=== PATIENT | male | born 1995 | race Hispanic/Latino ===

== ENCOUNTER 2021-10-25 08:30 | Emergency (ER) | payer SELFPAY ==
[2021-10-25] MEDS ORDERED: Ketorolac Tromethamine 30 MG/ML VIAL ONE (09:29)
[2021-10-25] MEDS ORDERED: Lidocaine 1% PF 5 ML VIAL ONE (09:29)
== END 2021-10-25 10:10 | disposition home or self-care (01) ==
LOC: ERS 08:30
DX: M70.42 Prepatellar bursitis, left knee (principal)
CPT/HCPCS: 20611; 96372; J1885

== ENCOUNTER 2021-11-03 15:57 | Emergency (ER) | payer SELFPAY | END 2021-11-03 17:28 | disposition home or self-care (01) | LOC: ERS 15:57 | DX: M70.52 Other bursitis of knee, left knee (principal) ==